=== PATIENT | male | born 1980 | race Caucasian/White ===

== ENCOUNTER 2019-01-26 17:35 | Emergency (ER) | payer BC ==
[2019-01-26 18:41] VITALS: BP 135/101
--- NOTE | 2019-01-26 19:07 | UC ---
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 Body aches, bad headache since Friday night. Has not been able to sleep because of the pain. Chills and hot flashes. Tylenol and ibuprofen not touching the headache" -has been out of work eysterday and today. -no pain w / swallowing -no rash - History of Current Complaint Chief Complaint: UCGeneralIllness Stated Complaint: SORE THROAT,BODY ACHES, HEADACHE Time Seen by Provider: 01/26/19 19:02 Pain Intensity: 8 - Allergies/Home Medications Allergies/Adverse Reactions: Allergies Allergy/AdvReac Type Severity Reaction Status Date / Time No Known Allergies Allergy Verified 01/26/19 18:41 PMH/Surg Hx/FS Hx/Imm Hx Previously Healthy: Yes GI/ History: Gastroesophageal Reflux - Surgical History Surgical History: Yes Surgery Procedure, Year, and Place: App ~1982. Lasik 2009, carpal monik - Family History Known Family History: Positive: Hypertension - Social History Alcohol Use: Occasionally Substance Use Type: None Smoking Status (MU): Former Smoker When Did the Patient Quit Smoking/Using Tobacco: few days ago Review of Systems All Other Systems Reviewed And Are Negative: Yes Constitutional: Positive: Fever, Chills, Fatigue Skin: Positive: Negative. Negative: Rash Eyes: Positive: Negative ENT: Positive: Sore Throat Respiratory: Positive: Negative Cardiovascular: Positive: Negative Gastrointestinal: Positive: Negative Genitourinary: Positive: Negative Motor: Positive: Negative Neurovascular: Positive: Negative Musculoskeletal: Positive: Myalgia Neurological: Positive: Negative Psychological: Positive: Negative Is Patient Immunocompromised?: No Physical Exam Triage Information Reviewed: Yes Appearance: Pain Distress - mild-moderate Vital Signs: Initial Vital Signs Temp 98.3 F 01/26/19 18:35 Pulse 87 01/26/19 18:35 Resp 18 01/26/19 18:35 BP 135/101 01/26/19 18:35 Pulse Ox 100 01/26/19 18:35 Vital Signs Reviewed: Yes Eye Exam: Normal ENT: Positive: Hearing grossly normal, Pharyngeal erythema, TMs normal, Tonsillar exudate, Uvula midline, Other - no abscess. voice nml.. Negative: Nasal congestion, TM bulging, TM dull, TM red, Tonsillar swelling, Sinus tenderness Dental Exam: Normal Neck: Positive: Supple, Enlarged Nodes @ - b/l anrterior cx. tender. Negative: Nuchal Rigidity Respiratory Exam: Normal Respiratory: Positive: Chest non-tender, Lungs clear, Normal breath sounds, No respiratory distress, No accessory muscle use. Negative: Crackles, Rhonchi, Stridor, Wheezing Cardiovascular Exam: Normal Cardiovascular: Positive: RRR, No Murmur, Pulses Normal, Brisk Capillary Refill Abdominal Exam: Normal Abdomen Description: Positive: Nontender, Soft Musculoskeletal Exam: Normal Neurological Exam: Normal Psychological Exam: Normal Skin Exam: Normal Throat Pain/Nasal Course/Dx - Course Course Of Treatment: + strep -augmentin 875mgs po bid x 10 d -probiotic -OOW tomorrow - Differential Dx/Diagnosis Differential Diagnosis/HQI/PQRI: Laryngitis, Pharyngitis, Tonsillitis, URI Provider Diagnosis: Strep pharyngitis Discharge - Sign-Out/Discharge Documenting (check all that apply): Patient Departure All imaging exams completed and their final reports reviewed: No Studies - Discharge Plan Condition: Stable Disposition: HOME Prescriptions: Amoxicillin/Clavulanate TAB* [Augmentin TAB 875*] 875 mg PO BID #20 tab Patient Education Materials: Strep Throat (ED) Forms: *Work Release Referrals: Timothy Sin MD [Primary Care Provider] - 3 Days Additional Instructions: + strep throat culture. -Make sure to take a probiotic daily while on antibiotics to help prevent a potential complication of antibiotic use called c diff. Some well known brands that can be found OTC are florastor, align and [employer]. Make sure to complete the entire prescription unless advised otherwise by your health care provider. -Be certain to follow up with your PCP this week as your BP is very high as well. Much of it may be due to the infection and hopefully it will resolve with the treatment of the strep throat. - Billing Disposition and Condition Condition: STABLE Disposition: Home
== END 2019-01-26 19:13 | disposition home or self-care (01) ==
LOC: UCCORT 17:35
DX: J02.0 Streptococcal pharyngitis (principal); B95.0 Streptococcus, group A, as the cause of diseases classified elsewhere; Z87.891 Personal history of nicotine dependence
CPT/HCPCS: 87651; 99212; G0463